=== PATIENT | male | born 1955 | race Caucasian/White ===

== ENCOUNTER 2018-03-06 16:31 | Emergency (ER) | payer OTHER ==
[2018-03-06] MEDS ORDERED: ONDANSETRON HCL INJ/PF 4 MG/2 ML SDV ONE (16:39)
[2018-03-06] MEDS ORDERED: MORPHINE SULFATE 10 MG/ML INJ ONE (16:40)
[2018-03-06] MEDS ORDERED: ONDANSETRON HCL INJ/PF 4 MG/2 ML SDV IV ONE ×2 (16:56→17:01)
[2018-03-06] MEDS ORDERED: MORPHINE SULFATE 10 MG/ML INJ IV ONE ×2 (16:56→17:09)
[2018-03-06 17:08] LABS: ABSOLUTE BASOPHILS # (AUTO) 0.1 10^3/uL (0.0-0.2); ABSOLUTE EOSINOPHILS # (AUTO) 0.2 10^3/uL (0.0-0.6); ABSOLUTE LYMPHOCYTES (AUTO) 3.7 10^3/uL (0.5-4.7); ABSOLUTE MONOCYTES (AUTO) 0.8 10^3/uL (0.1-1.4); BASOPHILS % (AUTO) 1.3 % (0-2); EOSINOPHILS % (AUTO) 1.6 % (0-6); HEMOGLOBIN 15.4 g/dL (13.5-17.0); LYMPHOCYTES % (AUTO) 34.3 % (13-45); MEAN CORPUSCULAR HEMOGLOBIN 28.3 pg (27.0-33.4); MEAN CORPUSCULAR HGB CONC 33.6 g/dL (32.0-36.0); MEAN CORPUSCULAR VOLUME 84 fl (80-97); MONOCYTES % (AUTO) 7.7 % (3-13); PLATELET COUNT 308 10^3/uL (150-450); RED BLOOD COUNT 5.44 10^6/uL (4.35-5.55); RED CELL DISTRIBUTION WIDTH 14.6 % (11.5-14.0); SEGMENTED NEUTROPHILS % (AUTO) 55.1 % (42-78); TOTAL CELLS COUNTED % (AUTO) 100 %; WHITE BLOOD COUNT 10.9 10^3/uL (4.0-10.5)
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
[2018-03-06 17:23] LABS: ALANINE AMINOTRANSFERASE 16 U/L (21-72); ALBUMIN 4.4 g/dL (3.5-5.0); ALKALINE PHOSPHATASE 86 U/L (38-126); ANION GAP 8 (5-19); ASPARTATE AMINO TRANSFERASE 25 U/L (17-59); BILIRUBIN,DIRECT 0.6 mg/dL (0.0-0.4); BILIRUBIN,TOTAL 0.9 mg/dL (0.2-1.3); BLOOD UREA NITROGEN 22 mg/dL (7-20); CARBON DIOXIDE 25 mmol/L (22-30); CHLORIDE 107 mmol/L (98-107); GLUCOSE 122 mg/dL (75-110); POTASSIUM 4.3 mmol/L (3.6-5.0); SODIUM 140.1 mmol/L (137-145); TOTAL PROTEIN 7.6 g/dL (6.3-8.2)
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
[2018-03-06] MEDS ORDERED: MORPHINE SULFATE 10 MG/ML INJ IV PRN (18:40)
[2018-03-06] MEDS ORDERED: NORMAL SALINE 1000 ML 1,000 ML IV ONE (18:44)
--- NOTE | 2018-03-06 20:04 | EKG REPORT ---
SEVERITY:- NORMAL ECG - SINUS RHYTHM : Confirmed by: Enriqueta Dominique MD 06-Mar-2018 20:04:01
[2018-03-06 21:16] VITALS: BP 150/88
[2018-03-06] MEDS ORDERED: RINGERS SOLUTION,LACTATED 1,000 ML IV ONE (21:27)
== END 2018-03-06 22:04 | disposition short-term general hospital (02) ==
LOC: ER 16:31
DX: T20.20XA Burn of second degree of head, face, and neck, unspecified site, initial encounter (principal); T22.252A Burn of second degree of left shoulder, initial encounter; T22.251A Burn of second degree of right shoulder, initial encounter; T21.23XA Burn of second degree of upper back, initial encounter; T31.22 Burns involving 20-29% of body surface with 20-29% third degree burns; X08.8XXA Exposure to other specified smoke, fire and flames, initial encounter
CPT/HCPCS: 93005; 96376; 99285; 96361; 96374; 96375; 36415; 85025; 80053; 84484; 71045; 93010; J2270; J2405

== ENCOUNTER 2018-03-12 17:26 | Emergency (ER) | payer OTHER ==
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
[2018-03-12] MEDS ORDERED: BACITRACIN ZINC OINTMENT 15 GM TP ONE (19:23)
[2018-03-12 21:28] VITALS: BP 177/86
== END 2018-03-12 21:28 | disposition home or self-care (01) ==
LOC: ER 17:26
DX: Z48.00 Encounter for change or removal of nonsurgical wound dressing (principal)
CPT/HCPCS: 99283; J3490